=== PATIENT | female | born 1995 | race Hispanic/Latino ===

== ENCOUNTER → 2018-11-08 | Outpatient (CLI) | payer OTHER ==
--- NOTE | 2018-11-08 10:40 | REP ---
MR BRAIN WITH AND WITHOUT CONTRAST: HISTORY: Hyperprolactinemia. CONTRAST: ProHance 8 mL. Scattered punctate areas of increased signal intensity on T2-weighted images are present in the subcortical white matter at the frontal and right parietal lobes. There is no intraparenchymal hemorrhage, infract or midline shift. The ventricular system is normal in appearance. There is no extracerebral collection. A 6 mm focus of increased signal intensity on T1-weighted images is present in the right side of the pituitary gland. There is no enhancement with contrast. The pituitary gland is normal in size measuring 7 mm in height. The infundibulum is midline. The cavernous sinuses, optic chiasm and hypothalamus are normal in appearance. The visualized sinuses are clear. IMPRESSION: 1. There are scattered punctate areas of increased signal intensity in the subcortical white matter of the frontal lobes and right parietal lobe. This is a nonspecific finding, however, can be seen in conditions such as migraine. 2. There is a 6 mm focus of increased signal intensity in the right side of the pituitary gland on unenhanced T1-weighted images. 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 This may also represent a Rathke's cleft cyst. Electronically Signed by Justo Mukherjee MD 11/08/2018 10:57 A
== END ==
LOC: M PLARAD 07:56
PROVIDERS: ATTEND Family Medicine
DX: E22.1 Hyperprolactinemia (principal)

== ENCOUNTER 2019-03-09 19:21 | Emergency (ER) | payer OTHER ==
[~2019-03-09] VITALS: Ht 165.1 cm; Wt 89.2 kg
[2019-03-09 19:21] VITALS: BP 133/80
[2019-03-09] MEDS ORDERED: KEFL500C17 PO (20:07)
[2019-03-09] MEDS ORDERED: CEPHALEXIN 500 MG CAP PO ONE (20:15)
== END 2019-03-09 20:22 | disposition home or self-care (01) ==
LOC: M ED 19:21
DX: S60.453A Superficial foreign body of left middle finger, initial encounter (principal); W45.8XXA Other foreign body or object entering through skin, initial encounter; Y92.410 Unspecified street and highway as the place of occurrence of the external cause; Y93.89 Activity, other specified; Y99.9 Unspecified external cause status